=== PATIENT | male | born 1960 | race Caucasian/White ===

== ENCOUNTER 2017-12-03 10:16 | Day surgery (SDC) | payer BC ==
[2017-12-02 16:36] VITALS: BMI 25.7
[2017-12-03] MEDS ORDERED: PROPOFOL 20 ML ONE (10:53)
[2017-12-03 14:58] VITALS: BP 116/66; PULSE 68
--- NOTE | 2017-12-05 13:09 | PATH ---
Surgical Pathology Report Patient Name: LILY MCKEON [facility]. Rec. #: [id number] /Age/Gender: 1960 (Age: 57) / M Account: [id number] Location: [facility]-ENDOSCOPY Taken: 12/03/2017 Received: 12/03/2017 Reported: 12/05/2017 Physicians: Vida Samuel M.D. Specimen(s) Received A: BX SMALL BOWEL B: BX ANTRUM C: BX GE JUNCTION Clinical History Preoperative diagnosis: GERD, peptic ulcer disease Postoperative diagnosis: Rule out celiac disease, gastritis Final Diagnosis A. SMALL BOWEL, BIOPSY: SCANT SMALL BOWEL MUCOSA WITHOUT SIGNIFICANT PATHOLOGIC FINDINGS. NO EVIDENCE OF CELIAC DISEASE. B. STOMACH, ANTRUM, BIOPSY: GASTRIC ANTRAL MUCOSA WITH MILD CHRONIC GASTRITIS. IMMUNOHISTOCHEMICAL STAIN FOR H. PYLORI IS NEGATIVE. C. GASTROESOPHAGEAL (GE) JUNCTION, BIOPSY: SQUAMOCOLUMNAR MUCOSA WITH MILD CHRONIC INFLAMMATION AND CHANGES OF MILD REFLUX ESOPHAGITIS. NO INTESTINAL METAPLASIA OR DYSPLASIA IDENTIFIED. Electronically Signed Vida Osborne M.D. Gross Description A. Received in formalin, labeled "small bowel" is a luz, irregular portion of soft tissue measuring 0.3 cm. in greatest dimension. The specimen is submitted in toto in one cassette. B. Received in formalin, labeled "antrum" are 2 luz, irregular portions of soft tissue averaging 0.3 cm. in greatest dimension. The specimens are submitted in toto in one cassette. C. Received in formalin, labeled "GE junction" is a luz, irregular portion of soft tissue measuring 0.4 cm. in greatest dimension. The specimen is submitted in toto in one cassette. 12/04/2017 saudi12/04/2017
== END 2017-12-03 11:45 | disposition home or self-care (01) ==
LOC: FASU-ENDO 10:16
PROVIDERS: ATTEND Internal Medicine Gastroenterology
PROC: 0DB48ZX Excision of Esophagogastric Junction, Via Natural or Artificial Opening Endoscopic, Diagnostic (ICD-10-PCS; 2017-12-03)
PROC: 0DB98ZX Excision of Duodenum, Via Natural or Artificial Opening Endoscopic, Diagnostic (ICD-10-PCS; principal; 2017-12-03 11:34)
PROC: 0DB68ZX Excision of Stomach, Via Natural or Artificial Opening Endoscopic, Diagnostic (ICD-10-PCS; 2017-12-03 11:34)
DX: K29.50 Unspecified chronic gastritis without bleeding (principal); K21.0 Gastro-esophageal reflux disease with esophagitis; R10.13 Epigastric pain; R11.2 Nausea with vomiting, unspecified
CPT/HCPCS: 88305-TC; 88342-TC